=== PATIENT | male | born 1955 | race American Indian/Alaskan Native ===

== ENCOUNTER 2018-05-18 22:37 | Emergency (ER) | payer MEDICARE ==
[2018-05-18 22:55] VITALS: BP 163/95
[2018-05-18 23:49] LABS: Basophils % (Auto) 0.9 % (0.0-1.8); Eosinophils # (Auto) 0.1 K/mm3 (0.0-0.4); Eosinophils % (Auto) 1.3 % (0.0-4.3); Hemoglobin 11.5 gm/dl (11.8-15.2); Lymphocytes # (Auto) 0.5 K/mm3 (1.2-5.4); Lymphocytes % (Auto) 9.6 % (13.4-35.0); Mean Corpuscular HGB Conc 34 % (32-34); Mean Corpuscular Volume 83 fl (84-94); Monocytes # (Auto) 0.4 K/mm3 (0.0-0.8); Monocytes % (Auto) 8.4 % (0.0-7.3); Platelet Count 247 K/mm3 (140-440); Red Cell Distribution Width 15.1 % (13.2-15.2)
--- NOTE | 2018-05-18 23:50 | XRay Report ---
PROCEDURE: XR CHEST ROUTINE 2V TECHNIQUE: PA and lateral chest radiographs were obtained. HISTORY: Shortness of breath COMPARISONS: None. FINDINGS: Heart: Normal. Mediastinum/Vessels: Normal. Lungs/Pleural space: Normal. Bony thorax: No acute osseous abnormality. IMPRESSION: Normal examination. This document is electronically signed by Florence Coker DO., May 18 2018 11:48:29 PM ET
[2018-05-19 00:42] LABS: BUN/Creatinine Ratio 13; Blood Urea Nitrogen 14 mg/dL (9-20); Calcium 9.1 mg/dL (8.4-10.2); Hemolysis Index 3
--- NOTE | 2018-05-19 01:59 | Emergency Department Report ---
ED General Adult HPI - General Chief complaint: Dyspnea/Respdistress Stated complaint: BRITTANY Source: patient Mode of arrival: Ambulatory Limitations: No Limitations - History of Present Illness Initial comments: She is a 63-year-old male past medical history COPD who presents with shortness of breath that started earlier on today patient states that he has some nasal congestion and one hour used his CPAP at night and didn't feel any air coming through. He denies having any chest pain any fevers or chills. He says nothing makes his symptoms better and nothing makes them worse. - Related Data Home Medications Medication Instructions Recorded Confirmed Last Taken Lisinopril [Zestril TAB] 40 mg PO QDAY 02/20/16 02/20/16 Unknown Lovastatin [Altoprev] 40 mg PO QHS 02/20/16 02/20/16 Unknown amLODIPine [Norvasc] 5 mg PO DAILY 02/20/16 02/20/16 Unknown metFORMIN [Glucophage] 500 mg PO BID 02/20/16 02/20/16 Unknown Previous Rx's Medication Instructions Recorded Last Taken Type Butalb/Acetamin/Caff 50-325-40 1 each PO Q4H PRN #20 tablet 02/20/16 Unknown Rx [Fioricet] ALBUTEROL Inhaler (OR & NICU) 2 puff IH QID PRN #1 inhalation 05/19/18 Unknown Rx [ProAir HFA Inhaler] Oxymetazoline 0.05% [Afrin] 1 spray NS Q8H #1 bottle 05/19/18 Unknown Rx predniSONE [Deltasone] 20 mg PO BID #10 tab 05/19/18 Unknown Rx Allergies Allergy/AdvReac Type Severity Reaction Status Date / Time No Known Allergies Allergy Unverified 02/19/16 19:59 ED Review of Systems ROS: Stated complaint: BRITTANY Other details as noted in HPI Constitutional: denies: chills, fever Eyes: denies: eye pain, eye discharge, vision change ENT: congestion. denies: ear pain, throat pain Respiratory: shortness of breath. denies: cough, wheezing Cardiovascular: denies: chest pain, palpitations Endocrine: no symptoms reported Gastrointestinal: denies: abdominal pain, nausea, diarrhea Genitourinary: denies: urgency, dysuria Musculoskeletal: denies: back pain, joint swelling, arthralgia Skin: denies: rash, lesions Neurological: denies: headache, weakness, paresthesias Psychiatric: denies: anxiety, depression Hematological/Lymphatic: denies: easy bleeding, easy bruising ED Past Medical Hx - Past Medical History Previous Medical History?: Yes Hx Hypertension: Yes Hx Diabetes: Yes Additional medical history: Hyperlipidemia - Surgical History Past Surgical History?: Yes Additional Surgical History: Left rotator cuff repair - Social History Smoking Status: Never Smoker Substance Use Type: None - Medications Home Medications: Home Medications Medication Instructions Recorded Confirmed Last Taken Type Butalb/Acetamin/Caff 50-325-40 1 each PO Q4H PRN #20 tablet 02/20/16 Unknown Rx [Fioricet] Lisinopril [Zestril TAB] 40 mg PO QDAY 02/20/16 02/20/16 Unknown History Lovastatin [Altoprev] 40 mg PO QHS 02/20/16 02/20/16 Unknown History amLODIPine [Norvasc] 5 mg PO DAILY 02/20/16 02/20/16 Unknown History metFORMIN [Glucophage] 500 mg PO BID 02/20/16 02/20/16 Unknown History ALBUTEROL Inhaler (OR & NICU) 2 puff IH QID PRN #1 inhalation 05/19/18 Unknown Rx [ProAir HFA Inhaler] Oxymetazoline 0.05% [Afrin] 1 spray NS Q8H #1 bottle 05/19/18 Unknown Rx predniSONE [Deltasone] 20 mg PO BID #10 tab 05/19/18 Unknown Rx ED Physical Exam - General Limitations: No Limitations General appearance: alert, in no apparent distress - Head Head exam: Present: atraumatic, normocephalic - Eye Eye exam: Present: normal appearance - ENT ENT exam: Present: mucous membranes moist - Neck Neck exam: Present: normal inspection - Respiratory Respiratory exam: Present: normal lung sounds bilaterally, wheezes. Absent: respiratory distress - Cardiovascular Cardiovascular Exam: Present: regular rate, normal rhythm. Absent: systolic murmur, diastolic murmur, rubs, gallop - GI/Abdominal GI/Abdominal exam: Present: soft, normal bowel sounds - Rectal Rectal exam: Present: deferred - Extremities Exam Extremities exam: Present: normal inspection - Back Exam Back exam: Present: normal inspection - Neurological Exam Neurological exam: Present: alert, oriented X3 - Psychiatric Psychiatric exam: Present: normal affect, normal mood - Skin Skin exam: Present: warm, dry, intact, normal color. Absent: rash ED Course Vital Signs 05/18/18 05/18/18 05/19/18 22:44 23:13 03:14 Temperature 98.9 F 98.9 F Pulse Rate 113 H Pulse Rate [ 95 H Anterior Bilateral Throughout] Respiratory 20 Rate Respiratory 14 Rate [Anterior Bilateral Throughout] Blood Pressure 163/95 O2 Sat by Pulse 98 Oximetry ED Medical Decision Making - Lab Data Result diagrams: 05/18/18 23:33 05/18/18 23:33 Lab Results 05/18/18 05/18/18 Range/Units 23:33 23:33 WBC 4.9 (4.5-11.0) K/mm3 RBC 4.10 (3.65-5.03) M/mm3 Hgb 11.5 L (11.8-15.2) gm/dl Hct 34.0 L (35.5-45.6) % MCV 83 L (84-94) fl MCH 28 (28-32) pg MCHC 34 (32-34) % RDW 15.1 (13.2-15.2) % Plt Count 247 (140-440) K/mm3 Lymph % (Auto) 9.6 L (13.4-35.0) % Cassia % (Auto) 8.4 H (0.0-7.3) % Eos % (Auto) 1.3 (0.0-4.3) % Baso % (Auto) 0.9 (0.0-1.8) % Lymph # 0.5 L (1.2-5.4) K/mm3 Cassia # 0.4 (0.0-0.8) K/mm3 Eos # 0.1 (0.0-0.4) K/mm3 Baso # 0.0 (0.0-0.1) K/mm3 Seg Neutrophils % 79.8 H (40.0-70.0) % Seg Neutrophils # 3.9 (1.8-7.7) K/mm3 Sodium 142 (137-145) mmol/L Potassium 4.2 (3.6-5.0) mmol/L Chloride 102.7 (98-107) mmol/L Carbon Dioxide 23 (22-30) mmol/L Anion Gap 21 mmol/L BUN 14 (9-20) mg/dL Creatinine 1.1 (0.8-1.5) mg/dL Estimated GFR > 60 ml/min BUN/Creatinine Ratio 13 % Glucose 164 H (75-100) mg/dL Calcium 9.1 (8.4-10.2) mg/dL - EKG Data -: EKG Interpreted by Me - EKG Data 05/19/18 04:24 EKG shows sinus tachycardia no ST segment elevation and no axis deviation - Radiology Data Radiology results: report reviewed Chest x-ray: Shows no acute cardiopulmonary disease - Medical Decision Making Chief medical diagnosis: Viral URI Differential diagnosis: Nasal congestion, COPD exacerbation CHEST x-ray PATIENT steroids and I'll give breathing treatment while some patient home with Afrin. Discussed plan with patient patient agrees with plan additional verbal discharge instructions were given. Critical care attestation.: If time is entered above; I have spent that time in minutes in the direct care of this critically ill patient, excluding procedure time. ED Disposition Clinical Impression: Nasal congestion, SOB (shortness of breath) Disposition: DC- TO HOME OR SELFCARE Is pt being admited?: No Does the pt Need Aspirin: No Condition: Stable Instructions: Cold Symptoms (ED), Decongestant/Expectorant (By mouth) Prescriptions: ALBUTEROL Inhaler (OR & NICU) [ProAir HFA Inhaler] 2 puff IH QID PRN #1 inhalation PRN Reason: Shortness Of Breath Oxymetazoline 0.05% [Afrin] 1 spray NS Q8H #1 bottle predniSONE [Deltasone] 20 mg PO BID #10 tab Referrals: DARIEL MORA MD [Primary Care Provider] - 3-5 Days
[2018-05-19] MEDS ORDERED: PROVENTIL IH ONE (02:00)
[2018-05-19] MEDS ORDERED: DELTASONE PO ONE (02:04)
[2018-05-19] MEDS ORDERED: ATROVENT IH ONE (02:04)
== END 2018-05-19 05:09 | disposition home or self-care (01) ==
LOC: ED 22:37
DX: J06.9 Acute upper respiratory infection, unspecified (principal); I10 Essential (primary) hypertension; E11.9 Type 2 diabetes mellitus without complications; E78.5 Hyperlipidemia, unspecified
CPT/HCPCS: 36415; 71046; 80048; 85025; 93005; 93010; 94640; 99284; J7512